=== PATIENT | female | born 1950 | race Caucasian/White ===

== ENCOUNTER 2021-07-11 13:31 | Outpatient (CLI) | payer MEDICARE ==
--- NOTE | 2021-07-11 18:49 | XRAY Report ---
PROCEDURE: Foot 3 View LT INDICATIONS: CONTUSION OF L FOOT TECHNIQUE: 3 views of the foot were acquired. COMPARISON: None FINDINGS: Bones: Slightly displaced oblique fracture through the base of fifth metatarsal noted. There is a pietro lux valgus deformity noted involving the first digital ray. Osteopenia Soft tissues: No tibiotalar joint effusion. Achilles tendon appears normal. IMPRESSION: Slightly displaced fracture, base of fifth metatarsal Osteopenia Hallux valgus Reviewed by: Drake Coburn MD on 07/11/2021 5:47 PM [facility] Approved by: Drake Coburn MD on 07/11/2021 5:47 PM AKDT Station ID: [id number]
== END 2021-07-11 23:59 | disposition home or self-care (01) ==
LOC: DI.N 13:31
PROVIDERS: ATTEND Physician Assistant Medical
DX: S92.352A Displaced fracture of fifth metatarsal bone, left foot, initial encounter for closed fracture (principal); M85.872 Other specified disorders of bone density and structure, left ankle and foot; M20.12 Hallux valgus (acquired), left foot

== ENCOUNTER 2021-08-31 06:00 | Outpatient (CLI) | payer MEDICARE ==
--- NOTE | 2021-09-01 08:37 | XRAY Report ---
PROCEDURE: Foot 3 View LT INDICATIONS: 5TH MT FX TECHNIQUE: 3 views of the foot were acquired. COMPARISON: None FINDINGS: There is some evidence of partial healing at the left fifth metatarsal base fracture, although there is still a lucency and mild placement/distraction of the bone fragments indicating that there is not yet complete union. Remaining findings in the foot are unchanged. IMPRESSION: Partial healing of left fifth metatarsal base fracture. Reviewed by: Lucas Cabrales MD on 09/01/2021 8:36 AM PDT Approved by: Lucas Cabrales MD on 09/01/2021 8:36 AM PDT Station ID: [id number]
== END 2021-08-31 23:59 | disposition home or self-care (01) ==
LOC: DI.WOS 06:00
PROVIDERS: ATTEND Orthopaedic Surgery
DX: S92.352D Displaced fracture of fifth metatarsal bone, left foot, subsequent encounter for fracture with routine healing (principal)

== ENCOUNTER 2022-11-17 12:50 | Emergency (ER) | payer MEDICARE ==
[2022-11-17 12:58] VITALS: BP 169/88; O2SAT 100
--- NOTE | 2022-11-17 13:01 | ED Physician Documentation ---
PD HPI UPPER EXT INJURY - Stated complaint Stated Complaint: RING STUCK,SWOLLEN FINGER - Chief complaint Chief Complaint: General - History obtained from History obtained from: Patient - History of Present Illness Location: Left, Finger (ring finger) Review of Systems Neurologic: denies: Focal weakness, Numbness PD PAST MEDICAL HISTORY - Past Medical History Cardiovascular: None Respiratory: None Neuro: None Endocrine/Autoimmune: None - Allergies Allergies/Adverse Reactions: Allergies Allergy/AdvReac Type Severity Reaction Status Date / Time No Known Drug Allergies Allergy Verified 11/17/22 12:57 PD ED PE NORMAL - Vitals Vital signs reviewed: Yes - General General: Alert and oriented X 3, Well developed/nourished - Derm Derm: Normal color, Warm and dry - Extremities Extremities: Other (left ring finger with edema generally distal to wedding ring. Good cap refill and finger movement at [facility]. ) - Neuro Neuro: No motor deficit, No sensory deficit Results - Vitals Vitals: Vital Signs - 24 hr 11/17/22 12:54 Temperature 36.7 C Heart Rate 85 Respiratory 18 Rate Blood Pressure 169/88 H O2 Saturation 100 Oxygen O2 Source Room air PD Medical Decision Making - ED course Complexity details: considered differential (finger swellling from bee sting and now ring on finger is too tight and unable to remove normal way. Here for reing removal. ), d/w patient ED course: the ring had been partly cut at Walk In. I went at same area with our ring cutter and cut through with good tolerance by patient. However, unable to torque the ring apart. Cut ring second spot and now with a segment of ring gone, could twist the ring and pull it off finger sideways. Mild abrasin of skin from ring pulling off. Departure - Departure Disposition: 01 Home, Self Care Clinical Impression: Finger swelling, Bee sting, Tight ring on finger Condition: Stable Instructions: ED Bite Insect Comments: I would anticipate the swelling go down through today and in the next day or so regarding the swollen finger from the ring as well as from the bee stings. Recheck if not improved over the next 2 to 3 days. Forms: PCP List Discharge Date/Time: 11/17/22 14:01
== END 2022-11-17 14:01 | disposition home or self-care (01) ==
LOC: ED 12:50
DX: S60.445A External constriction of left ring finger, initial encounter (principal); W49.04XA Ring or other jewelry causing external constriction, initial encounter; S60.415A Abrasion of left ring finger, initial encounter; X58.XXXA Exposure to other specified factors, initial encounter; Y93.89 Activity, other specified; Y92.538 Other ambulatory health services establishments as the place of occurrence of the external cause
CPT/HCPCS: 99281; 99283